=== PATIENT | male | born 1990 ===

== ENCOUNTER 2016-11-15 17:19 | Emergency (ER) | payer MEDICAID ==
[2016-11-15 17:35] VITALS: BP 121/52; PULSE 104; RESP 18; TEMP 99.3; O2SAT 98
[2016-11-15] MEDS ORDERED: Lidocaine 1% Inj (20ml) IJ ONE (19:46)
[2016-11-15] MEDS ORDERED: Povidone Iodine Topical 10% Sol ONE (20:02)
--- NOTE | 2016-11-15 20:13 | ED PDOC ---
HPI: Wound Care - HPI Time Seen by Provider: 11/15/16 18:42 Chief Complaint (Nursing): Abnormal Skin Integrity Chief Complaint (Provider): Abnormal Skin Integrity History Per: Patient Exam Limitations: no limitations Onset/Duration Of Symptoms: Hrs (prior to arrival ) Additional Complaint(s): Edy Jay, 26 year old male presents to the ED after sustaining multiple lacerations while at work today. The patient reports losing control of a hand saw, therefore causing multiple lacerations on his left forearm. He denies numbness, tingling, or any foreign body sensations. PMD: Non [facility] Provider Past Medical History Reviewed: Historical Data, Nursing Documentation, Vital Signs Vital Signs: Last Vital Signs Temp 99.3 F 11/15/16 17:31 Pulse 104 H 11/15/16 17:31 Resp 18 11/15/16 17:31 BP 121/52 L 11/15/16 17:31 Pulse Ox 98 11/15/16 17:31 - Medical History PMH: No Chronic Diseases - Surgical History Surgical History: Appendectomy - Family History Family History: States: Unknown Family Hx - Social History Alcohol: None Drugs: Denies - Immunization History Hx Tetanus Toxoid Vaccination: (UNSURE) - Home Medications Home Medications: Ambulatory Orders Medication Instructions Recorded Cephalexin [Keflex] 500 mg PO QID #20 cap 01/21/15 Cephalexin [cephalexin] 500 mg PO Q6 #28 cap 11/15/16 - Allergies Allergies/Adverse Reactions: Allergies Allergy/AdvReac Type Severity Reaction Status Date / Time No Known Allergies Allergy Verified 11/15/16 17:31 Review of Systems ROS Statement: Except As Marked, All Systems Reviewed And Found Negative Musculoskeletal: Positive for: Arm Pain (multiple lacerations to left forearm ) Neurological: Negative for: Numbness (and no tingling ) Physical Exam - Reviewed Nursing Documentation Reviewed: Yes Vital Signs Reviewed: Yes - Physical Exam Appears: Positive for: Well, Non-toxic, No Acute Distress Head Exam: Positive for: ATRAUMATIC, NORMAL INSPECTION, NORMOCEPHALIC Pulses-Radial (L): 2+ Pulses-Radial (R): 2+ Extremity: Positive for: Other (1 four inch linear lacerations, 1 2cm linear laceration, 1 two inch linear lacerations all on left forearm without active bleeding) - ECG O2 Sat by Pulse Oximetry: 98 (RA) Pulse Ox Interpretation: Normal Procedure: Wound Repair - Time Performed Time Performed: 21:00 - Time Out Time Out: Side verified, Site verified, Patient ID confirmed, Sterile procedures obs. - Consent Obtained Consent obtained: Emergent consent implied - Performed by Performed by: Mid-level Provider (Dann) - Indications Indication(s):: Laceration - Location Location:: Left, Posterior, Forearm Shape:: Linear Dimensions Length cm: 17 Dimensions width cm: 0 Depth:: Epidermis - Anesthetic Technique Anesthetic Technique: Local Local/Regional Anesthetic:: Lidocaine 1% - Wound Examination Wound Examination:: Contaminated - Debris Debris:: Dirt - Irrigated Irrigated with ml of normal saline: 1000 - Complexity Complexity:: Simple (one layer) - Wound repair method Sutures:: # (15), Size (4-0), Type (proline), Technique (simple interrupted) - Patient tolerated procedure Patient Tolerated Procedure:: Well Medical Decision Making Medical Decision Making: Impression: Lacerations to left forearm Plan: * Wound Care * Lidocaine 1% (20 ml) 10 ml IJ Scribe Attestation: Documented by Jennie Street, acting as a scribe for Nemesio Quigley PA-C. Provider Scribe Attestation: All medical record entries made by the Scribe were at my direction and personally dictated by me. I have reviewed the chart and agree that the record accurately reflects my personal performance of the history, physical exam, medical decision making, and the department course for this patient. I have also personally directed, reviewed, and agree with the discharge instructions and disposition. Disposition - Clinical Impression Clinical Impression: Arm laceration - Patient ED Disposition Is Patient to be Admitted: No - Disposition Referrals: [facility] [Outside] Disposition: Routine/Home Disposition Time: 21:30 Condition: STABLE Additional Instructions: FOLLOW UP WITH [facility] IN 2 DAYS FOR WOUND CHECK. SUTURE REMOVAL IN 7-10 DAYS. Prescriptions: Cephalexin [cephalexin] 500 mg PO Q6 #28 cap Instructions: Care For Your Stitches (ED) Print Language: AMHARIC
== END 2016-11-15 22:43 | disposition home or self-care (01) ==
LOC: H.ER 17:19
DX: S51.812A Laceration without foreign body of left forearm, initial encounter (principal); W26.8XXA Contact with other sharp object(s), not elsewhere classified, initial encounter; Y99.0 Civilian activity done for income or pay

== ENCOUNTER 2017-05-31 12:04 | Emergency (ER) | payer MEDICAID, OTHER ==
[2017-05-31 12:12] VITALS: BP 132/84; PULSE 95; RESP 16; TEMP 97; O2SAT 100
[2017-05-31] MEDS ORDERED: Liquid Adhesive TOP ONE (13:11)
--- NOTE | 2017-05-31 14:02 | ED PDOC ---
HPI: Head Injury Time Seen by Provider: 05/31/17 12:48 Chief Complaint (Nursing): Headache Chief Complaint (Provider): Head injury History Per: Patient History/Exam Limitations: no limitations Injury Occurred (Timing): Just Before Arrival Onset/Duration Of Symptoms: Hrs (this morning) Patient States: Struck With Object Loss Of Consciousness: No Additional Complaint(s): Edy Jay is a 26 year old male, with no significant past medical history, who was brought to the emergency department via EMS for head injury onset earlier today. Patient states at work a load of sheetrock fell on him, he became pinned between the wall and the sheetrock. Patient states he was initially hit in the face and the back of the head hit the wall. He denies loss of consciousness but did sustained a laceration to nose. Patient denies any other injuries, chest pain, neck pain or abdominal pain. No further medical complaints. PMD: None provided. Past Medical History Reviewed: Historical Data, Nursing Documentation, Vital Signs Vital Signs: Last Vital Signs Temp 97.0 F L 05/31/17 12:09 Pulse 95 H 05/31/17 12:09 Resp 16 05/31/17 12:09 BP 132/84 05/31/17 12:09 Pulse Ox 100 05/31/17 12:09 - Medical History PMH: No Chronic Diseases - Surgical History Surgical History: Appendectomy - Family History Family History: States: No Known Family Hx - Social History Alcohol: None Drugs: Denies - Immunization History Hx Tetanus Toxoid Vaccination: (UNSURE) - Home Medications Home Medications: Ambulatory Orders Medication Instructions Recorded Cephalexin [Keflex] 500 mg PO QID #20 cap 01/21/15 Cephalexin [cephalexin] 500 mg PO Q6 #28 cap 11/15/16 - Allergies Allergies/Adverse Reactions: Allergies Allergy/AdvReac Type Severity Reaction Status Date / Time No Known Allergies Allergy Verified 11/15/16 17:31 Review of Systems ROS Statement: Except As Marked, All Systems Reviewed And Found Negative Constitutional: Positive for: Other (head injury) ENT: Positive for: Other (Nose laceration) Cardiovascular: Negative for: Chest Pain Gastrointestinal: Negative for: Abdominal Pain Musculoskeletal: Negative for: Neck Pain Neurological: Negative for: Other (LOC) Physical Exam - Reviewed Nursing Documentation Reviewed: Yes Vital Signs Reviewed: Yes - Physical Exam Appears: Positive for: Non-toxic Head Exam: Negative for: ATRAUMATIC (minimal swelling to occipital scalp.) Skin: Positive for: Normal Color, Warm, Dry Eye Exam: Positive for: Normal appearance, EOMI, PERRL ENT: Positive for: Other (1cm linear superficial laceration to the nasal bridge w/ mild swelling and tenderness. No deformity, no septal hematoma. ) Neck: Positive for: Painless ROM, Supple Respiratory: Negative for: Respiratory Distress Back: Positive for: Normal Inspection. Negative for: Vertebral Tenderness (no cervical or vertebral tenderness) Extremity: Positive for: Normal ROM. Negative for: Tenderness, Deformity, Swelling Neurologic/Psych: Positive for: Alert, Oriented (x3). Negative for: Motor/ Sensory Deficits - ECG O2 Sat by Pulse Oximetry: 100 (RA) Pulse Ox Interpretation: Normal - Progress ED Course And Treament: CT head w/o contrast: small benign subarachnoid cyst; no ICH; nothing acute CT maxillofacial w/o contrast: no fx Pt. informed of CT findings and to f/u with PMD for further evaluation. Medical Decision Making Medical Decision Making: Initial Impression: head injury Initial Plan: --Head w/o contrast [CT] --Maxillofacial w/o contrast [CT] --Mastisol Adhesive 0.66 ml TOP --reevaluation 14:[address] FINDINGS: HEMORRHAGE: No intracranial hemorrhage. BRAIN: No mass effect or edema. No atrophy or chronic microvascular ischemic changes. VENTRICLES: Unremarkable. No hydrocephalus. CALVARIUM: Unremarkable. PARANASAL SINUSES: Unremarkable as visualized. No significant inflammatory changes. MASTOID AIR CELLS: Unremarkable as visualized. No inflammatory changes. OTHER FINDINGS: There is 2.4 x 2.5 centimeter cystic structure to the left of the midline in the posterior portion of the posterior fossa may represent benign arachnoid cyst. IMPRESSION: No evidence of acute intracranial hemorrhage intracranial collection mass effect or midline shift. 2.4 x 2.5 centimeters cyst to the left of the midline in the posterior fossa may represent arachnoid cyst. 14:[address] FINDINGS: NASAL BONES: No evidence of acute displaced fracture ORBITS: Unremarkable. PARANASAL SINUSES/ MASTOIDS: Clear. MAXILLA: Unremarkable. MANDIBLE/ TEMPOROMANDIBULAR JOINTS: Unremarkable. SKULL BASE: Unremarkable. TEMPORAL BONES: Middle ears and mastoid grossly unremarkable. OTHER FINDINGS: None. IMPRESSION: No evidence of acute fracture at the maxillofacial bones. 14:38 Upon provider reevaluation patient is feeling better, is medically stable, and requires no further treatment in the ED at this time. Patient will be discharged home. Counseling was provided and all questions were answered regarding diagnosis and need for follow up with outpatient health clinic. There is agreement to discharge plan. Return if symptoms persist or worsen. ~ Scribe Attestation: Documented by Obey Hawk, acting as a scribe for Nemesio Quigley PA-C. Provider Scribe Attestation: All medical record entries made by the Scribe were at my direction and personally dictated by me. I have reviewed the chart and agree that the record accurately reflects my personal performance of the history, physical exam, medical decision making, and the department course for this patient. I have also personally directed, reviewed, and agree with the discharge instructions and disposition. Procedures - Time-Out Type of Procedure: laceration repair Site of Procedure: nasal bridge Correct Patient (with visual ID + MR# on ID Band): Yes Correct Procedure: Yes Correct Site Marked: Yes MANJIT/Tech: Dann - Laceration/Wound Repair Laceration repair Wound Length (cm): 1.5 Wound's Depth, Shape: superficial, linear Wound Explored: clean Irrigated w/ Saline (ccs): 200 Wound Repaired With: Skin adhesive Wound Complexity: Simple Disposition - Clinical Impression Clinical Impression: Head injury, Nasal laceration - Patient ED Disposition Is Patient to be Admitted: No - Disposition Referrals: [facility] [Outside] Disposition: Routine/Home Disposition Time: 14:38 Condition: STABLE Instructions: Head Injury (ED), Skin Adhesive Care (ED) Forms: [employer] (Sammarinese), [facility] ED School/Work Excuse
--- NOTE | 2017-05-31 14:05 | CT ---
PROCEDURE: CT HEAD WITHOUT CONTRAST. HISTORY: trauma COMPARISON: None available. TECHNIQUE: Axial computed tomography images were obtained through the head/brain without intravenous contrast. Radiation dose: Total exam DLP = 871.9 mGy-cm. This CT exam was performed using one or more of the following dose reduction techniques: Automated exposure control, adjustment of the mA and/or kV according to patient size, and/or use of iterative reconstruction technique. FINDINGS: HEMORRHAGE: No intracranial hemorrhage. BRAIN: No mass effect or edema. No atrophy or chronic microvascular ischemic changes. VENTRICLES: Unremarkable. No hydrocephalus. CALVARIUM: Unremarkable. PARANASAL SINUSES: Unremarkable as visualized. No significant inflammatory changes. MASTOID AIR CELLS: Unremarkable as visualized. No inflammatory changes. OTHER FINDINGS: There is 2.4 x 2.5 centimeter cystic structure to the left of the midline in the posterior portion of the posterior fossa may represent benign arachnoid cyst. IMPRESSION: No evidence of acute intracranial hemorrhage intracranial collection mass effect or midline shift. 2.4 x 2.5 centimeters cyst to the left of the midline in the posterior fossa may represent arachnoid cyst.
--- NOTE | 2017-05-31 14:20 | CT ---
PROCEDURE: CT MAXILLOFACIAL BONES WITHOUT CONTRAST HISTORY: trauma COMPARISON: None TECHNIQUE: Contiguous axial CT images of the maxillofacial bones were obtained. Coronal and sagittal reformats were generated. Radiation dose: Total exam DLP = 836.12 mGy-cm. This CT exam was performed using one or more of the following dose reduction techniques: Automated exposure control, adjustment of the mA and/or kV according to patient size, and/or use of iterative reconstruction technique. FINDINGS: NASAL BONES: No evidence of acute displaced fracture ORBITS: Unremarkable. PARANASAL SINUSES/ MASTOIDS: Clear. MAXILLA: Unremarkable. MANDIBLE/ TEMPOROMANDIBULAR JOINTS: Unremarkable. SKULL BASE: Unremarkable. TEMPORAL BONES: Middle ears and mastoid grossly unremarkable. OTHER FINDINGS: None. IMPRESSION: No evidence of acute fracture at the maxillofacial bones.
== END 2017-05-31 14:50 | disposition home or self-care (01) ==
LOC: H.ER 12:04
DX: S01.21XA Laceration without foreign body of nose, initial encounter (principal); S09.90XA Unspecified injury of head, initial encounter; W20.8XXA Other cause of strike by thrown, projected or falling object, initial encounter